=== PATIENT | female | born 1940 | race Caucasian/White ===

== ENCOUNTER 2016-08-05 08:28 | Outpatient (CLI) | payer MEDICARE, OTHER | END 2016-08-05 08:29 | disposition home or self-care (01) | DX: I10 Essential (primary) hypertension (principal); Z79.899 Other long term (current) drug therapy ==

== ENCOUNTER 2016-11-15 09:53 | Outpatient (CLI) | payer MEDICARE, OTHER | END 2016-11-15 09:54 | disposition home or self-care (01) | DX: Z12.31 Encounter for screening mammogram for malignant neoplasm of breast (principal); Z80.3 Family history of malignant neoplasm of breast ==

== ENCOUNTER 2017-03-28 14:30 | Outpatient (CLI) | payer MEDICARE, OTHER | END 2017-03-28 14:31 | disposition home or self-care (01) | LOC: LAB.R 14:30 | PROVIDERS: ATTEND Physician Assistant Medical | DX: N30.00 Acute cystitis without hematuria (principal) | CPT/HCPCS: 87086 ==

== ENCOUNTER 2017-04-19 08:00 | Outpatient (CLI) | payer MEDICARE, OTHER | END 2017-04-19 08:01 | disposition home or self-care (01) | LOC: LAB.R 08:00 | PROVIDERS: ATTEND Nurse Practitioner Primary Care | DX: N30.00 Acute cystitis without hematuria (principal) | CPT/HCPCS: 87086 ==

== ENCOUNTER 2017-08-10 08:00 | Outpatient (CLI) | payer MEDICARE, OTHER ==
[2017-08-10 14:50] LABS: BASOPHILS % (AUTO) 0.6 %; EOSINOPHILS # (AUTO) 0.2 10^3/uL (0.0-0.7); EOSINOPHILS % (AUTO) 3.4 %; HGB - HEMOGLOBIN 12.6 g/dL (12.0-16.0); LYMPHOCYTES # (AUTO) 2.8 10^3/uL (1.5-3.5); LYMPHOCYTES % (AUTO) 45.9 %; MEAN CORPUSCULAR HEMOGLOBIN 29.8 pg (27.0-31.0); MEAN CORPUSCULAR HGB CONC 33.3 g/dL (32.0-36.0); MEAN CORPUSCULAR VOLUME 89.2 fL (81.0-99.0); MEAN PLATELET VOLUME 9.5 fL (7.9-10.8); MONOCYTES # (AUTO) 0.6 10^3/uL (0.0-1.0); MONOCYTES % (AUTO) 9.3 %; NEUTROPHILS # (AUTO) 2.5 10^3/uL (1.5-6.6); NEUTROPHILS % (AUTO) 40.8 %; PLT - PLATELET COUNT 216 10^3/uL (130-450); RED BLOOD COUNT 4.22 10^6/uL (4.20-5.40); RED CELL DISTRIBUTION WIDTH 13.9 % (12.0-15.0); WHITE BLOOD COUNT 6.1 x10^3/uL (4.8-10.8)
[2017-08-10 15:00] LABS: ALBUMIN 4.1 g/dL (3.2-5.5); ALBUMIN/GLOBULIN RATIO 1.3 (1.0-2.2); ALKALINE PHOSPHATASE 73 IU/L (42-121); ALT ALANINE AMINOTRANSFERASE 22 IU/L (10-60); AST ASPARTATE AMINOTRANSFERASE 21 IU/L (10-42); BILIRUBIN,TOTAL 0.9 mg/dL (0.2-1.0); BUN - BLOOD UREA NITROGEN 17 mg/dL (6-20); CARBON DIOXIDE - CO2 25 mmol/L (21-32); CHLORIDE 101 mmol/L (101-111); CHOL/HDL RATIO 3.4 (<4.4); CHOLESTEROL 198 mg/dL; CREATININE 0.7 mg/dL (0.4-1.0); GFR - MDRD 82 (>89); GLUCOSE 82 mg/dL (70-100); HDL CHOLESTEROL 59 mg/dL; LDL CHOLESTEROL,CALCULATED 114 mg/dL; LDL/HDL RATIO 1.9 (<4.4); SODIUM 137 mmol/L (135-145); TOTAL PROTEIN 7.3 g/dL (6.7-8.2); VLDL CHOLESTEROL 25 mg/dL
== END 2017-08-10 08:01 ==
LOC: LAB.R 08:00
PROVIDERS: ATTEND Physician Assistant Medical
DX: Z79.899 Other long term (current) drug therapy (principal); M54.5 Low back pain; I10 Essential (primary) hypertension
CPT/HCPCS: 80053; 80061; 83721; 84443; 85025

== ENCOUNTER 2017-11-21 10:58 | Outpatient (CLI) | payer MEDICARE, OTHER ==
--- NOTE | 2017-11-22 13:39 | Mammography Report ---
DIGITAL SCREENING MAMMOGRAM: 11/21/2017 CLINICAL INDICATION: A 77-year-old with history of benign right biopsy for screening. COMPARISON: 10/2016, 11/2015, 05/2014, 03/2013, 12/2011, 12/2009. TECHNIQUE: Routine CC and MLO projections were obtained of the breasts. FINDINGS: The breasts again demonstrate scattered fibroglandular densities bilaterally. Coarse and punctate, typically benign calcifications are present. No suspicious masses, clustered microcalcifications, or regions of architectural distortion are identified. IMPRESSION: BENIGN FINDINGS. RECOMMENDATION: Routine annual screening unless otherwise clinically indicated. BI-RADS CATEGORY 2 - BENIGN FINDINGS. STANDARD QUALIFYING STATEMENTS: 1. This examination was reviewed with the aid of Computer-Aided Detection (CAD). 2. A negative or benign imaging report should not delay biopsy if clinically suspicious findings are present. Consider surgical consultation if warranted. More than 5% of cancers are not identified by imaging. 3. Dense breasts may obscure an underlying neoplasm. TD: 11/22/2017 13:26
== END 2017-11-21 10:59 | disposition home or self-care (01) ==
LOC: DI 10:58
PROVIDERS: ATTEND Physician Assistant Medical
DX: Z12.31 Encounter for screening mammogram for malignant neoplasm of breast (principal)
CPT/HCPCS: 77067

== ENCOUNTER 2018-08-16 08:00 | Outpatient (CLI) | payer MEDICARE, OTHER ==
[2018-08-16 12:11] LABS: BASOPHILS # (AUTO) 0.1 10^3/uL (0.0-0.1); BASOPHILS % (AUTO) 1.2 %; EOSINOPHILS # (AUTO) 0.2 10^3/uL (0.0-0.7); EOSINOPHILS % (AUTO) 3.2 %; HGB - HEMOGLOBIN 13.2 g/dL (12.0-16.0); LYMPHOCYTES % (AUTO) 46.4 %; MEAN CORPUSCULAR HEMOGLOBIN 30.3 pg (27.0-31.0); MEAN CORPUSCULAR HGB CONC 35.8 g/dL (32.0-36.0); MEAN CORPUSCULAR VOLUME 84.8 fL (81.0-99.0); MEAN PLATELET VOLUME 9.1 fL (7.9-10.8); MONOCYTES # (AUTO) 0.6 10^3/uL (0.0-1.0); MONOCYTES % (AUTO) 9.9 %; NEUTROPHILS # (AUTO) 2.5 10^3/uL (1.5-6.6); NEUTROPHILS % (AUTO) 39.3 %; PLT - PLATELET COUNT 215 10^3/uL (130-450); RED BLOOD COUNT 4.35 10^6/uL (4.20-5.40); RED CELL DISTRIBUTION WIDTH 13.5 % (12.0-15.0); WHITE BLOOD COUNT 6.4 x10^3/uL (4.8-10.8)
[2018-08-16 12:20] LABS: ALBUMIN 4.2 g/dL (3.2-5.5); ALBUMIN/GLOBULIN RATIO 1.2 (1.0-2.2); BILIRUBIN,TOTAL 0.8 mg/dL (0.2-1.0); CREATININE 0.6 mg/dL (0.4-1.0); TOTAL PROTEIN 7.6 g/dL (6.7-8.2)
== END 2018-08-16 23:59 | disposition home or self-care (01) ==
LOC: LAB.R 08:00
PROVIDERS: ATTEND Nurse Practitioner Primary Care
DX: I10 Essential (primary) hypertension (principal); Z79.899 Other long term (current) drug therapy
CPT/HCPCS: 80053; 85025

== ENCOUNTER 2020-05-14 09:53 | Outpatient (CLI) | payer MEDICARE, OTHER ==
[2020-05-14 10:17] LABS: BASOPHILS % (AUTO) 0.4 %; EOSINOPHILS # (AUTO) 0.2 10^3/uL (0.0-0.7); EOSINOPHILS % (AUTO) 3.8 %; LYMPHOCYTES # (AUTO) 2.8 10^3/uL (1.5-3.5); LYMPHOCYTES % (AUTO) 50.8 %; MEAN CORPUSCULAR HEMOGLOBIN 30.4 pg (27.0-31.0); MEAN CORPUSCULAR HGB CONC 33.2 g/dL (32.0-36.0); MEAN CORPUSCULAR VOLUME 91.6 fL (81.0-99.0); MEAN PLATELET VOLUME 9.7 fL (7.9-10.8); MONOCYTES # (AUTO) 0.7 10^3/uL (0.0-1.0); MONOCYTES % (AUTO) 12.7 %; NEUTROPHILS # (AUTO) 1.8 10^3/uL (1.5-6.6); NEUTROPHILS % (AUTO) 32.1 %; PLT - PLATELET COUNT 233 10^3/uL (130-450); RED BLOOD COUNT 4.28 10^6/uL (4.20-5.40); RED CELL DISTRIBUTION WIDTH 13.3 % (12.0-15.0); WHITE BLOOD COUNT 5.6 x10^3/uL (4.8-10.8)
[2020-05-14 10:42] LABS: ALBUMIN 4.1 g/dL (3.2-5.5); ALBUMIN/GLOBULIN RATIO 1.3 (1.0-2.2); ALKALINE PHOSPHATASE 72 IU/L (42-121); ALT ALANINE AMINOTRANSFERASE 34 IU/L (10-60); AST ASPARTATE AMINOTRANSFERASE 27 IU/L (10-42); BILIRUBIN,TOTAL 0.6 mg/dL (0.2-1.0); BUN - BLOOD UREA NITROGEN 13 mg/dL (6-20); CALCIUM 9.1 mg/dL (8.5-10.3); CARBON DIOXIDE - CO2 25 mmol/L (21-32); CHLORIDE 103 mmol/L (101-111); CHOL/HDL RATIO 4.5 (<4.4); CHOLESTEROL 207 mg/dL; CREATININE 0.7 mg/dL (0.4-1.0); GLUCOSE 105 mg/dL (70-100); HDL CHOLESTEROL 46 mg/dL; LDL CHOLESTEROL,CALCULATED 128 mg/dL; LDL/HDL RATIO 2.8 (<4.4); SODIUM 139 mmol/L (135-145); TOTAL PROTEIN 7.3 g/dL (6.7-8.2); VLDL CHOLESTEROL 33 mg/dL
== END 2020-05-14 09:54 | disposition home or self-care (01) ==
LOC: LAB 09:53
PROVIDERS: ATTEND Registered Nurse
DX: I10 Essential (primary) hypertension (principal); Z79.899 Other long term (current) drug therapy
CPT/HCPCS: 36415; 80053; 80061; 83721; 84443; 85025

== ENCOUNTER 2020-06-02 11:53 | Outpatient (CLI) | payer MEDICARE, OTHER ==
--- NOTE | 2020-06-02 15:52 | XRAY Report ---
PROCEDURE: Knee 3 View LT INDICATIONS: DERANGEMENT,INTERNAL,KNEE NOS TECHNIQUE: 3 views of the left knee(s) were acquired. COMPARISON: None. FINDINGS: Bones: No fractures or dislocations. No suspicious bony lesions. Moderate medial, mild to moderate patellofemoral as well as lateral compartment narrowing. Small periarticular osteophytes are present . No erosions. Soft tissues: Moderate to severe joint effusion. No suspicious soft tissue calcifications. IMPRESSION: Prominent tricompartmental degenerative narrowing suggestive osteoarthritis. Reviewed by: Kat Shaikh MD on 06/02/2020 3:51 PM PST Approved by: Kat Shaikh MD on 06/02/2020 3:51 PM PST Station ID: [id number]
== END 2020-06-02 11:54 | disposition home or self-care (01) ==
LOC: DI 11:53
PROVIDERS: ATTEND Family Medicine
DX: M17.12 Unilateral primary osteoarthritis, left knee (principal)

== ENCOUNTER 2020-08-04 13:55 | Outpatient (CLI) | payer MEDICARE, OTHER ==
--- NOTE | 2020-08-05 14:58 | Mammography Report ---
BILATERAL DIGITAL SCREENING MAMMOGRAM 3D/2D: 08/04/2020 CLINICAL: Routine screening. Comparison is made to exams dated: 11/15/2016 mammogram, 11/21/2017 mammogram, 11/24/2015 mammogram, an d 05/30/2014 mammogram - Located within [facility]. There are scattered fibroglandular elements i n both breasts. No significant masses, calcifications, or other findings are seen in either breast. There has been no significant interval change. IMPRESSION: NEGATIVE There is no mammographic evidence of malignancy. A 1 year screening mammogram is recommended. This exam was interpreted at Station ID: [id number]. NOTE: For mammograms, a report in lay terms will be sent to the patient. Approximately 15% of breast malignancies will not be visualized mammographically. In the management of a palpable breast mass, a negative mammogram must not discourage biopsy of a clinically suspicious lesion. Electronically Signed By: Red Crouch M.D. ddp/penrad:08/04/2020 16:50:59 ACR BI-RADS Category 1: Negative 3341F PARENCHYMAL PATTERN: (A) - The breast(s) demonstrate(s) scattered fibroglandular densities. BI-RADS CATEGORY: (1) - 1 RECOMMENDATION: (ANNUAL) - Recommend routine annual screening mammography. [id number] 1 year screening LATERALITY: (B)
== END 2020-08-04 13:56 | disposition home or self-care (01) ==
LOC: DI 13:55
PROVIDERS: ATTEND Obstetrics & Gynecology
DX: Z12.31 Encounter for screening mammogram for malignant neoplasm of breast (principal)

== ENCOUNTER 2020-08-04 13:58 | Outpatient (CLI) | payer MEDICARE, OTHER ==
--- NOTE | 2020-08-04 17:04 | DEXA Report ---
PROCEDURE: Dexa Spine and/or Hip INDICATIONS: MENOPAUSE TECHNIQUE: Dual energy x-ray absorptiometry (DXA) was performed on a [employer] System. Regions measur ed are the AP Spine, femoral neck, and if needed forearm. COMPARISON: None. FINDINGS: Lumbar Spine: Bone Mineral Density 0.891 g/cm/cm,T score -2.4, osteopenia Left Hip: Bone Mineral Density 0.771 g/cm/cm,T score -1.9, osteopenia Left Femoral Neck: Bone Mineral Density 0.702 g/cm/cm, T score -2.4, osteopenia (T score greater or equal to -1.0: NORMAL) (T score from -1.1 to -2.4: OSTEOPENIA) (T score less than or equal to -2.5 to: OSTEOPOROSIS) Impression: Osteopenia. Patients with diagnosis of osteoporosis or osteopenia should have regular bone mineral density assess ment. For those eligible for Medicare, routine testing is allowed once every 2 years. Testing frequ ency can be increased for patients who have rapidly progressing disease or for those who are receivin g medical therapy to restore bone mass. Reviewed by: Ankita Diana MD, PhD on 08/04/2020 5:03 PM PST Approved by: Ankita Diana MD, PhD on 08/04/2020 5:03 PM PST Station ID: [id number]
== END 2020-08-04 13:59 | disposition home or self-care (01) ==
LOC: DI 13:58
PROVIDERS: ATTEND Registered Nurse
DX: M85.89 Other specified disorders of bone density and structure, multiple sites (principal)

== ENCOUNTER 2021-08-20 10:21 | Outpatient (CLI) | payer MEDICARE, OTHER ==
[2021-08-20 12:34] LABS: BASOPHILS % (AUTO) 0.5 %; EOSINOPHILS % (AUTO) 3.9 %; HCT - HEMATOCRIT 41.5 % (37.0-47.0); HGB - HEMOGLOBIN 13.3 g/dL (12.0-16.0); MEAN CORPUSCULAR HEMOGLOBIN 29.2 pg (27.0-31.0); MEAN CORPUSCULAR VOLUME 91.2 fL (81.0-99.0); MONOCYTES % (AUTO) 7.1 %; NEUTROPHILS % (AUTO) 26.3 %; PLT - PLATELET COUNT 268 10^3/uL (130-450); RED BLOOD COUNT 4.55 10^6/uL (4.20-5.40); RED CELL DISTRIBUTION WIDTH 13.2 % (12.0-15.0); WHITE BLOOD COUNT 8.6 x10^3/uL (4.8-10.8)
[2021-08-20 13:04] LABS: ABNORMAL LYMPHS % (MANUAL) 0 %; BAND NEUTROPHILS % (MANUAL) 0 %
[2021-08-20 13:17] LABS: EOSINOPHILS # (MANUAL) 0.2 10^3/uL (0-0.7); LYMPHOCYTES # (MANUAL) 5.7 10^3/uL (1.5-3.5); LYMPHOCYTES % (MANUAL) 59 %; MONOCYTES # (MANUAL) 0.9 10^3/uL (0.0-1.0); NEUTROPHILS # (MANUAL) 1.9 10^3/uL (1.5-6.6); REACTIVE LYMPHS % (MANUAL) 7 %
[2021-08-20 13:18] LABS: DIFFERENTIAL COMMENT MANUAL DIFFERENTIAL; PLATELET ESTIMATE, MANUAL NORMAL (130-450,000) (NORMAL); PLATELET MORPHOLOGY NORMAL APPEARANCE (NORMAL); RBC MORPHOLOGY (MULTIPLE) NORMAL APPEARANCE (NORMAL)
[2021-08-20 13:25] LABS: ALBUMIN 4.4 g/dL (3.2-5.5); ALBUMIN/GLOBULIN RATIO 1.3 (1.0-2.2); ALKALINE PHOSPHATASE 74 IU/L (42-121); ALT ALANINE AMINOTRANSFERASE 26 IU/L (10-60); AST ASPARTATE AMINOTRANSFERASE 22 IU/L (10-42); BILIRUBIN,TOTAL 0.9 mg/dL (0.2-1.0); BUN - BLOOD UREA NITROGEN 17 mg/dL (6-20); CALCIUM 8.9 mg/dL (8.5-10.3); CARBON DIOXIDE - CO2 27 mmol/L (21-32); CHLORIDE 102 mmol/L (101-111); CHOL/HDL RATIO 4.2 (<4.4); CHOLESTEROL 243 mg/dL; CREATININE 0.7 mg/dL (0.4-1.0); GFR - MDRD 81 (>89); GLUCOSE 107 mg/dL (70-100); HDL CHOLESTEROL 58 mg/dL; LDL CHOLESTEROL,CALCULATED 157 mg/dL; LDL/HDL RATIO 2.7 (<4.4); POTASSIUM 3.6 mmol/L (3.5-5.0); SODIUM 135 mmol/L (135-145); TOTAL PROTEIN 7.7 g/dL (6.7-8.2); TRIGLYCERIDES 139 mg/dL; VLDL CHOLESTEROL 28 mg/dL
== END 2021-08-20 10:22 | disposition home or self-care (01) ==
LOC: LAB.N 10:21
PROVIDERS: ATTEND Registered Nurse
DX: I10 Essential (primary) hypertension (principal)
CPT/HCPCS: 36415; 80053; 80061; 83721; 85025

== ENCOUNTER 2021-08-23 08:00 | Outpatient (CLI) | payer MEDICARE, OTHER | END 2021-08-23 23:59 | disposition home or self-care (01) | LOC: LAB.N 08:00 | PROVIDERS: ATTEND Nurse Practitioner | DX: N39.0 Urinary tract infection, site not specified (principal) | CPT/HCPCS: 87077; 87086; 87181 ==

== ENCOUNTER 2021-08-27 13:19 | Outpatient (CLI) | payer MEDICARE, OTHER ==
--- NOTE | 2021-08-27 16:02 | Ultrasound Report ---
PROCEDURE: Head or Neck Soft Tissue INDICATIONS: SWELLING MASS NECK TECHNIQUE: Real-time scanning was performed of the thyroid gland, with image documentation. COMPARISON: None. FINDINGS: Right thyroid measures 5.0 x 1.7 x 1.2 cm. Left ovary measures 4.7 x 1.0 x 1.0 cm. The isthmus is 0.3 cm in thickness. A right inferior thyroid nodule measures 1.8 x 1.6 x 1.4 cm. The nodule is solid, hypoechoic, and wid er than tall with smooth margins and macroscopic calcification. (TR4 Moderately Suspicious) The palpable abnormality corresponds to the left submandibular gland, which contains a heterogeneousl y hypoechoic solid nodule measuring 2.3 x 1.3 x 1.9 cm with vascularity present. IMPRESSION: 1.Palpable abnormality corresponds to a circumscribed heterogeneous hypoechoic mass in the left subma ndibular gland. Differential considerations include benign and malignant masses. Recommend further ch aracterization with contrast-enhanced MRI or CT of the neck. 2.Moderately suspicious right inferior thyroid nodule measuring 1.8 cm. Recommend fine needle aspirat ion for further evaluation. Reviewed by: Honorio Lomeli MD on 08/27/2021 4:01 PM PST Approved by: Honorio Lomeli MD on 08/27/2021 4:01 PM PST Station ID: [id number]
== END 2021-08-27 13:20 | disposition home or self-care (01) ==
LOC: DI 13:19
PROVIDERS: ATTEND Family Medicine
DX: R22.1 Localized swelling, mass and lump, neck (principal); E04.1 Nontoxic single thyroid nodule

== ENCOUNTER 2021-09-21 12:03 | Outpatient (CLI) | payer MEDICARE, OTHER ==
[2021-09-21 12:37] LABS: CREATININE 0.7 mg/dL (0.4-1.0)
[2021-09-21] MEDS ORDERED: GADOBUTROL 7.5 MMOL/7.5 ML VIAL ONE (13:06)
--- NOTE | 2021-09-21 15:42 | MRI Report ---
PROCEDURE: Neck Soft Tissue W/WO INDICATIONS: HYPOECHOIC MASS LEFT NECK CONTRAST: IV CONTRAST: Gadavist ml: 7 TECHNIQUE: Sagittal/axial/coronal T1 spin echo and STIR. After the administration of contrast, axial/coronal/sa gittal T1 fast spin echo with fat saturation through the neck. COMPARISON: None. FINDINGS: Image quality: Degraded by motion artifact. Lymph nodes: No enlarged nodes are seen throughout the neck. Vessels: Visualized vasculature appears normal, with tanvir flow voids and enhancement. Neck spaces: The oropharynx, nasopharynx and pharynx are unremarkable, without mucosal lesions seen. Vocal cords, false vocal cords, pyriform sinuses, epiglottis, vallecula, and tongue base all appear normal. Extramucosal spaces of the neck also appear unremarkable. Glands: There is a 2.0 x 1.5 x 1.6 cm well-circumscribed lesion in the inferior margin of the left s ubmandibular gland. Lesion has slightly increased T2 signal and slightly hypointense T1 signal relati ve to normal submandibular tissue. Subtle postcontrast enhancement associated with lesion. The paroti d and right submandibular glands appear normal. 1.6 cm in maximum diameter nodule in the right lobe of the thyroid gland which demonstrates postcontrast enhancement. Miscellaneous: Visualized brain and orbits appear normal. Lung apices appear clear. Superficial so ft tissues appear normal. Small mucous retention cyst noted in the left maxillary sinus. Mastoids bertha ear clear. Bones: Marrow has normal overall signal. IMPRESSION: 1. 2.0 x 1.5 x 1.6 cm well-circumscribed lesion in the inferior margin left submandibular gland. Diff erential diagnosis includes benign etiologies such as pleomorphic adenoma or Marguerite's tumor and wendy gnancies including mucoepidermoid carcinoma and adenoid cystic carcinoma. Recommend ENT consultation. 2. 1.6 cm enhancing nodule in the right lobe of thyroid gland. Recommend thyroid ultrasound for defin itive characterization. Reviewed by: Ankita Diana MD, PhD on 09/21/2021 3:41 PM PDT Approved by: Ankita Diana MD, PhD on 09/21/2021 3:41 PM PDT Station ID: [id number]
[2021-09-21] MEDS ORDERED: GADOBUTROL 7.5 MMOL/7.5 ML VIAL IVP ONE (16:44)
== END 2021-09-21 12:04 | disposition home or self-care (01) ==
LOC: DI 12:03
PROVIDERS: ATTEND Registered Nurse
DX: R22.1 Localized swelling, mass and lump, neck (principal); E04.1 Nontoxic single thyroid nodule; Z01.818 Encounter for other preprocedural examination
CPT/HCPCS: 36415; 70543; 82565; A9585

== ENCOUNTER 2021-10-25 08:00 | Outpatient (CLI) | payer MEDICARE, OTHER | END 2021-10-25 08:01 | disposition home or self-care (01) | LOC: LAB.N 08:00 | PROVIDERS: ATTEND Family Medicine | DX: N39.0 Urinary tract infection, site not specified (principal) | CPT/HCPCS: 87077; 87086; 87181 ==

== ENCOUNTER 2022-04-13 08:00 | Outpatient (CLI) | payer MEDICARE, OTHER | END 2022-04-13 23:59 | disposition home or self-care (01) | LOC: LAB.N 08:00 | PROVIDERS: ATTEND Family Medicine | DX: R30.0 Dysuria (principal) | CPT/HCPCS: 87077; 87086; 87181 ==

== ENCOUNTER 2022-07-26 15:27 | Outpatient (CLI) | payer MEDICARE, OTHER ==
--- NOTE | 2022-07-26 17:06 | XRAY Report ---
PROCEDURE: Lumbar Spine Complete INDICATIONS: LOW BACK PAIN UNSPECIFIED TECHNIQUE: 5 views of the lumbar spine were acquired. COMPARISON: None. FINDINGS: Bones: 4 [id number] vertebrae are present with partial sacralization of L5, with a rudimentary L5-S1 disc. There is normal bony alignment. Lower lumbar facet arthropathy. Oblique images demonstra te no evidence of pars defects. No vertebral body compression fractures. No suspicious bony lesions. Soft tissues: Overlying bowel gas pattern is normal. No suspicious soft tissue calcifications. IMPRESSION: 1. Please note there are 4 nonrib-bearing lumbar vertebral bodies and partial sacralization of L5. 2. Lower lumbar facet arthropathy. Reviewed by: Trace Morales MD on 07/26/2022 5:04 PM PST Approved by: Trace Morales MD on 07/26/2022 5:04 PM PST Station ID: [id number]
== END 2022-07-26 15:28 | disposition home or self-care (01) ==
LOC: DI 15:27
PROVIDERS: ATTEND Nurse Practitioner
DX: M47.816 Spondylosis without myelopathy or radiculopathy, lumbar region (principal)

== ENCOUNTER 2022-08-24 10:36 | Outpatient (CLI) | payer MEDICARE, OTHER ==
--- NOTE | 2022-08-24 15:03 | DEXA Report ---
PROCEDURE: Dexa Spine and/or Hip INDICATIONS: POST MENOPAUSAL TECHNIQUE: Dual energy x-ray absorptiometry (DXA) was performed on a [employer] System. Regions measur ed are the AP Spine, femoral neck, and if needed forearm. COMPARISON: None. FINDINGS: Lumbar Spine: Bone Mineral Density 0.936 g/cm/cm,T score -2.0, previously -2.4 Left Femoral Neck: Bone Mineral Density 0.685 g/cm/cm, T score -2.5, previously -2.4 Left Hip: Bone Mineral Density 0.772 g/cm/cm,T score -1.9, previously -1.9 (T score greater or equal to -1.0: NORMAL) (T score from -1.1 to -2.4: OSTEOPENIA) (T score less than or equal to -2.5 to: OSTEOPOROSIS) Impression: Osteoporosis. There has been improvement of the lumbar spine but worsening of the left femoral neck b one mineral density Patients with diagnosis of osteoporosis or osteopenia should have regular bone mineral density assess ment. For those eligible for Medicare, routine testing is allowed once every 2 years. Testing frequ ency can be increased for patients who have rapidly progressing disease or for those who are receivin g medical therapy to restore bone mass. Reviewed by: Joselito Reeder MD on 08/24/2022 2:02 PM RUST Approved by: Joselito Reeder MD on 08/24/2022 2:02 PM [place] Station ID: [id number]
== END 2022-08-24 10:37 | disposition home or self-care (01) ==
LOC: DI 10:36
PROVIDERS: ATTEND Nurse Practitioner
DX: M85.89 Other specified disorders of bone density and structure, multiple sites (principal); Z78.0 Asymptomatic menopausal state

== ENCOUNTER 2022-12-07 14:49 | Outpatient (CLI) | payer MEDICARE, OTHER ==
[2022-12-07 15:03] LABS: BASOPHILS % (AUTO) 0.3 %; EOSINOPHILS % (AUTO) 1.3 %; HCT - HEMATOCRIT 39.6 % (37.0-47.0); HGB - HEMOGLOBIN 13.1 g/dL (12.0-16.0); MEAN CORPUSCULAR HEMOGLOBIN 29.9 pg (27.0-31.0); MEAN CORPUSCULAR HGB CONC 33.1 g/dL (32.0-36.0); MEAN CORPUSCULAR VOLUME 90.4 fL (81.0-99.0); MEAN PLATELET VOLUME 10.3 fL (7.9-10.8); MONOCYTES % (AUTO) 4.5 %; NEUTROPHILS % (AUTO) 14.7 %; PLT - PLATELET COUNT 235 10^3/uL (130-450); RED BLOOD COUNT 4.38 10^6/uL (4.20-5.40); WHITE BLOOD COUNT 18.1 x10^3/uL (4.8-10.8)
[2022-12-07 15:08] LABS: ABNORMAL LYMPHS % (MANUAL) 0 %; BAND NEUTROPHILS % (MANUAL) 0 %
[2022-12-07 15:14] LABS: ALBUMIN 4.3 g/dL (3.2-5.5); ALBUMIN/GLOBULIN RATIO 1.3 (1.0-2.2); BILIRUBIN,TOTAL 0.5 mg/dL (0.2-1.0); CALCIUM 9.1 mg/dL (8.5-10.3); CREATININE 0.6 mg/dL (0.4-1.0); POTASSIUM 3.6 mmol/L (3.5-5.0); TOTAL PROTEIN 7.6 g/dL (6.7-8.2)
[2022-12-07 15:31] LABS: THYROID STIMULATING HORMONE 1.77 uIU/mL (0.34-5.60)
[2022-12-07 16:03] LABS: DIFFERENTIAL COMMENT MANUAL DIFFERENTIAL; EOSINOPHILS # (MANUAL) 0.5 10^3/uL (0-0.7); LYMPHOCYTES % (MANUAL) 83 %; MONOCYTES # (MANUAL) 0.4 10^3/uL (0.0-1.0); NEUTROPHILS # (MANUAL) 2.2 10^3/uL (1.5-6.6); PLATELET ESTIMATE, MANUAL NORMAL (130-450,000) (NORMAL); PLATELET MORPHOLOGY NORMAL APPEARANCE (NORMAL); RBC MORPHOLOGY (MULTIPLE) NORMAL APPEARANCE (NORMAL)
== END 2022-12-07 14:50 | disposition home or self-care (01) ==
LOC: LAB 14:49
PROVIDERS: ATTEND Nurse Practitioner
DX: I10 Essential (primary) hypertension (principal); E04.1 Nontoxic single thyroid nodule
CPT/HCPCS: 36415; 80053; 84443; 85025

== ENCOUNTER 2022-12-09 09:02 | Outpatient (CLI) | payer MEDICARE, OTHER | END 2022-12-09 09:03 | disposition home or self-care (01) | LOC: LAB 09:02 | PROVIDERS: ATTEND Nurse Practitioner | DX: D72.829 Elevated white blood cell count, unspecified (principal) | CPT/HCPCS: 88184; 88185; 88189 ==

== ENCOUNTER 2023-01-16 09:23 | Outpatient (CLI) | payer MEDICARE, OTHER ==
[2023-01-16 09:44] LABS: BASOPHILS % (AUTO) 0.4 %; EOSINOPHILS % (AUTO) 1.3 %; HCT - HEMATOCRIT 40.6 % (37.0-47.0); LYMPHOCYTES % (AUTO) 77.6 %; MEAN CORPUSCULAR HEMOGLOBIN 29.8 pg (27.0-31.0); MEAN CORPUSCULAR VOLUME 93.1 fL (81.0-99.0); MEAN PLATELET VOLUME 10.4 fL (7.9-10.8); MONOCYTES % (AUTO) 5.6 %; NEUTROPHILS % (AUTO) 14.9 %; PLT - PLATELET COUNT 213 10^3/uL (130-450); RED BLOOD COUNT 4.36 10^6/uL (4.20-5.40); RED CELL DISTRIBUTION WIDTH 13.2 % (12.0-15.0); WHITE BLOOD COUNT 16.5 x10^3/uL (4.8-10.8)
[2023-01-16 09:50] LABS: ABNORMAL LYMPHS % (MANUAL) 0 %; BAND NEUTROPHILS % (MANUAL) 0 %
[2023-01-16 10:06] LABS: DIFFERENTIAL COMMENT MANUAL DIFFERENTIAL; EOSINOPHILS # (MANUAL) 0.3 10^3/uL (0-0.7); LYMPHOCYTES # (MANUAL) 12.4 10^3/uL (1.5-3.5); LYMPHOCYTES % (MANUAL) 29 %; MONOCYTES # (MANUAL) 1.2 10^3/uL (0.0-1.0); NEUTROPHILS # (MANUAL) 2.6 10^3/uL (1.5-6.6); RBC MORPHOLOGY (MULTIPLE) 1+ ANISOCYTOSIS (NORMAL); REACTIVE LYMPHS % (MANUAL) 46 %
== END 2023-01-16 09:24 | disposition home or self-care (01) ==
LOC: LAB 09:23
PROVIDERS: ATTEND Nurse Practitioner
DX: D72.829 Elevated white blood cell count, unspecified (principal)
CPT/HCPCS: 36415; 85025; 88184; 88185; 88189

== ENCOUNTER 2023-04-21 08:00 | Outpatient (CLI) | payer MEDICARE, OTHER | END 2023-04-21 23:59 | disposition home or self-care (01) | LOC: LAB 08:00 | PROVIDERS: ATTEND Physician Assistant Medical | DX: N30.00 Acute cystitis without hematuria (principal) | CPT/HCPCS: 87086; 87181 ==

== ENCOUNTER 2023-07-06 10:45 | Outpatient (CLI) | payer MEDICARE, OTHER | END 2023-07-06 11:00 | disposition home or self-care (01) | LOC: LAB.N 10:45 | PROVIDERS: ATTEND Physician Assistant Medical | DX: N30.01 Acute cystitis with hematuria (principal) | CPT/HCPCS: 87086; 87181 ==

== ENCOUNTER 2023-07-17 12:00 | Outpatient (CLI) | payer MEDICARE, OTHER ==
[2023-07-17 17:44] LABS: BILIRUBIN,URINE NEGATIVE (NEGATIVE); GLUCOSE, URINE (UA) NEGATIVE (NEGATIVE); KETONES,URINE (UA) NEGATIVE (NEGATIVE); LEUKOCYTE ESTERASE, URINE MODERATE (NEGATIVE); NITRITE,URINE POSITIVE (NEGATIVE); OCCULT BLOOD,URINE SMALL (NEGATIVE); PH,URINE 5.5 PH (5.0-7.5); PROTEIN,URINE TRACE mg/dL (NEGATIVE); UROBILINOGEN,URINE 0.2 (NORMAL) E.U./dL (NORMAL)
[2023-07-17 17:46] LABS: CLARITY,URINE CLOUDY (CLEAR)
[2023-07-17 17:56] LABS: BACTERIA,URINE Many /HPF (None Seen); SQUAMOUS EPITHELIAL CELL,UR NONE SEEN (<= Few); WBC,URINE >25 /HPF (0-5)
== END 2023-07-17 12:15 | disposition home or self-care (01) ==
LOC: LAB.N 12:00
PROVIDERS: ATTEND Family Medicine
DX: N39.0 Urinary tract infection, site not specified (principal)
CPT/HCPCS: 81001; 87086; 87181

== ENCOUNTER 2023-08-01 10:30 | Outpatient (CLI) | payer MEDICARE, OTHER ==
[2023-08-01 10:43] LABS: BILIRUBIN,URINE NEGATIVE (NEGATIVE); GLUCOSE, URINE (UA) NEGATIVE (NEGATIVE); KETONES,URINE (UA) NEGATIVE (NEGATIVE); LEUKOCYTE ESTERASE, URINE NEGATIVE (NEGATIVE); NITRITE,URINE NEGATIVE (NEGATIVE); OCCULT BLOOD,URINE TRACE-INTA (NEGATIVE); PROTEIN,URINE NEGATIVE (NEGATIVE); UROBILINOGEN,URINE 0.2 (NORMAL) E.U./dL (NORMAL)
[2023-08-01 10:54] LABS: BACTERIA,URINE Rare /HPF (None Seen); CLARITY,URINE CLEAR (CLEAR); RBC,URINE None Seen /HPF (0-5); SQUAMOUS EPITHELIAL CELL,UR MOD Squamous (<= Few); WBC,URINE 0-3 /HPF (0-5)
== END 2023-08-01 10:31 | disposition home or self-care (01) ==
LOC: LAB 10:30
PROVIDERS: ATTEND Nurse Practitioner
DX: N39.0 Urinary tract infection, site not specified (principal)
CPT/HCPCS: 81001; 87086; 87181

== ENCOUNTER 2023-09-22 13:24 | Outpatient (CLI) | payer MEDICARE, OTHER ==
--- NOTE | 2023-09-22 22:39 | Ultrasound Report ---
PROCEDURE: Renal (Retroperitoneal) INDICATIONS: RECURRENT UTI'S TECHNIQUE: Real-time scanning was performed of the retroperitoneal organs, with image documentation. COMPARISON: Outside CT abdomen and pelvis without contrast dated 11/03/2010 with report available, no images available for review at time of dictation. FINDINGS: Kidneys: Kidneys are normal in size. Right kidney measures 9.8 cm long; left kidney measures 10.7 c m long. Right renal cortical thickness is 0.7 cm; left renal cortical thickness is 0.7 cm. No solid masses, hydronephrosis, or nephrolithiasis. Prominent right renal pelvis, unchanged between pre and post void states, probable extrarenal pelvis. Bladder: Pre-void bladder volume is 82.5 mL. Post-void residual is 1.9 mL. Pre-void images demonst rate no intraluminal masses or stones. On pre-void images, bilateral ureteral jets are noted with co rosetta Doppler interrogation. (Of note, ureteral jets may not be detectable in up to 25% of cases due t o insufficient differences in specific gravity between ureteral and bladder urine). Miscellaneous: No free abdominal fluid. IMPRESSION: No nephrolithiasis or hydronephrosis. Probable right extrarenal pelvis. Prevoid bladder volume of 82.5 cc with postvoid residual volume of 1.9 cc. Bilateral ureteral jets vi sualized. Reviewed by: Pamela Rodriguez MD, PhD on 09/22/2023 9:38 PM STEVEN Approved by: Pamela Rodriguez MD, PhD on 09/22/2023 9:38 PM STEVEN Station ID: [id number]
== END 2023-09-22 13:25 | disposition home or self-care (01) ==
LOC: DI 13:24
PROVIDERS: ATTEND Urology
DX: N39.0 Urinary tract infection, site not specified (principal)

== ENCOUNTER 2023-10-03 12:57 | Outpatient (CLI) | payer MEDICARE, OTHER ==
--- NOTE | 2023-10-03 16:16 | CT Report ---
PROCEDURE: Sinus INDICATIONS: CHRONIC PANSINUSITIS TECHNIQUE: Noncontrast 3.0 mm axial images acquired from the frontal sinuses to the mid-sella, with coronal and sagittal reformats. For radiation dose reduction, the following was used: automated exposure control , adjustment of mA and/or kV according to patient size. COMPARISON: None. FINDINGS: Image quality: Excellent. Maxillary Sinuses: No bony remodeling or destruction. Mild mucosal thickening of the inferior maxill fred sinuses. Ethmoid Air Cells: No bony remodeling or destruction. Sinuses are clear. Sphenoid Sinuses: No bony remodeling or destruction. Small dependent air-fluid level within the righ t sphenoid sinus with frothy secretions.. Frontal Sinuses: No bony remodeling or destruction. Sinuses are clear. Ostiomeatal Complexes: Ostiomeatal complexes are patent. No Saúl cells. Miscellaneous: Visualized intra-orbital contents are normal. Lungs replacements No jagdeep bullosa. Mild rightward nasal septal deviation. Moderate temporal mandibular joint degeneration bilateral ly IMPRESSION: Mild paranasal sinus disease as described above. Air-fluid level within the right sphenoid sinus, sug gestive of acute sinusitis. Reviewed by: Kiran Lebron MD on 10/03/2023 4:14 PM PDT Approved by: Kiran Lebron MD on 10/03/2023 4:14 PM PDT Station ID: [id number]
== END 2023-10-03 12:58 | disposition home or self-care (01) ==
LOC: DI 12:57
PROVIDERS: ATTEND Otolaryngology
DX: J32.4 Chronic pansinusitis (principal); R43.0 Anosmia; J01.41 Acute recurrent pansinusitis; R09.82 Postnasal drip

== ENCOUNTER 2023-12-08 08:00 | Outpatient (CLI) | payer MEDICARE, OTHER | END 2023-12-08 23:59 | disposition home or self-care (01) | LOC: LAB.WCP 08:00 | PROVIDERS: ATTEND Urology | DX: N39.0 Urinary tract infection, site not specified (principal) | CPT/HCPCS: 87086; 87181 ==

== ENCOUNTER 2024-02-13 08:00 | Outpatient (CLI) | payer MEDICARE, OTHER | END 2024-02-13 23:59 | disposition home or self-care (01) | LOC: LAB.WCP 08:00 | PROVIDERS: ATTEND Nurse Practitioner | DX: N39.0 Urinary tract infection, site not specified (principal) | CPT/HCPCS: 87086 ==

== ENCOUNTER 2024-03-22 08:00 | Outpatient (CLI) | payer MEDICARE, OTHER | END 2024-03-22 23:58 | disposition home or self-care (01) | LOC: LAB.N 08:00 | PROVIDERS: ATTEND Urology | DX: D72.829 Elevated white blood cell count, unspecified (principal); N39.0 Urinary tract infection, site not specified | CPT/HCPCS: 87077; 87086; 87181 ==

== ENCOUNTER 2024-03-24 10:12 | Emergency (ER) | payer MEDICARE, OTHER ==
--- NOTE | 2024-03-24 11:13 | ED Physician Documentation ---
History of Present Illness - Stated complaint Stated Complaint: LT LEG/FT SWOLLEN,LT ARMPT PX,PX ALL DOWN LEG - Chief complaint Chief Complaint: Ext Problem - Additonal information Additional information: 83-year-old female with history of hypertension, arrhythmias, chronic bladder infections, osteoarthritis, lymphomaUpon chart review patient has monoclonal B- cell consistent with CLL last appointment was 01/18/2023 and she was found to be stable has not received any treatment for CLL. Patient reports over the last couple days she has been having increased left lower extremity swelling and pain that starts in her groin region and radiates down her internal leg she says that there is a very clear pattern to where the pain is. There is obvious swelling to the entire left lower extremity and she says today that she is now starting to experience pain in her armpit with swelling and increased abdominal pain with a bulge in her abdomen.No recent medication changes no nausea or vomiting but she does report that she has not taken her meds today because she just wanted to get a evaluation without anything on board. She also feels like she is struggling with a recurrent urinary tract infection that she is not currently on antibiotics for which does report that she has a lot of antibiotic resistance PD PAST MEDICAL HISTORY - Past Medical History Past Medical History: No Cardiovascular: Hypertension, Arrhythmia Respiratory: None Endocrine/Autoimmune: None GI: None : Incontinence, Chronic bladder infection, Frequency HEENT: Chronic vision loss Psych: None, Claustrophobia Musculoskeletal: Osteoarthritis, Chronic back pain Derm: None Other Past Medical History: Luekemia - Past Surgical History Past Surgical History: No 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, Other HEENT: Tonsil/Adenoidectomy Derm: Skin cancer surgery - Present Medications Home Medications: Ambulatory Orders Medication Instructions Recorded Confirmed Cholecalciferol (Vitamin D3) 1,000 unit ORAL DAILY 11/09/15 03/24/24 [Vitamin D] hydroCHLOROthiazide 12.5 mg ORAL DAILY 11/09/15 03/24/24 [Hydrochlorothiazide] Alendronate Sodium 70 mg PO UD 01/18/23 03/24/24 Calcium Carbonate [Calcium] 600 mg PO DAILY 01/18/23 03/24/24 Cyanocobalamin (Vitamin B-12) 2,500 mcg PO DAILY 01/18/23 03/24/24 [Vitamin B-12] Estrogens, Conjugated Cream 1 applic TOP PRN PRN 01/18/23 03/24/24 [Premarin Cream] D-Mannose [Azo D-Mannose] 500 mg PO BID 03/24/24 03/24/24 - Allergies Allergies/Adverse Reactions: Allergies Allergy/AdvReac Type Severity Reaction Status Date / Time eucalyptus Allergy Respiratory Verified 03/24/24 10:28 [From Vicks Vaporub] eucalyptus oil * Allergy Respiratory Verified 03/24/24 10:28 [From Vicks Vaporub] Influenza Virus Vaccines Allergy Unknown Verified 03/24/24 10:28 meperidine HCl * Allergy Hives Verified 03/24/24 10:28 [From Demerol] petrolatum,white Allergy Respiratory Verified 03/24/24 10:28 [From Vicks Vaporub] turpentine oil Allergy Respiratory Verified 03/24/24 10:28 [From Vicks Vaporub] ciprofloxacin [From Cipro] AdvReac Nausea Verified 03/24/24 10:28 ciprofloxacin HCl * AdvReac Nausea Verified 03/24/24 10:28 [From Cipro] Sulfa (Sulfonamide AdvReac Nausea Verified 03/24/24 10:28 Antibiotics) shrimp Allergy Hives Uncoded 03/24/24 10:28 - Social History Does the pt smoke?: No Smoking Status: Former smoker Does the pt drink ETOH?: Yes ETOH Use: Liquor Does the pt have substance abuse?: No - Immunizations Immunizations are current?: No - POLST Patient has POLST: Yes Results - Vitals Vitals: Vital Signs - 24 hr 03/24/24 03/24/24 03/24/24 10:28 11:04 11:30 Temperature 36.6 C Heart Rate 105 H 97 93 Respiratory 15 18 20 Rate Blood Pressure 148/96 H 127/93 H O2 Saturation 98 98 95 03/24/24 03/24/24 12:00 13:40 Temperature 36.7 C Heart Rate 93 98 Respiratory 22 18 Rate Blood Pressure 141/93 H O2 Saturation 92 96 Oxygen O2 Source Room air - EKG (time done) 1037 EKG releavant findings:: EKG personally interpreted by author of this note. Relevant findings are: Rate: Rate (enter#) (103) Rhythm: Sinus tachycardia [place]: Normal Intervals: Normal MO QRS: Normal Ischemia: Other (probable left atrial enlargement) Computer interpretation: Agree with computer - Labs Labs: Laboratory Tests 03/24/24 03/24/24 03/24/24 11:21 11:21 13:50 WBC 31.0 H RBC 4.24 Hgb 12.4 Hct 39.2 MCV 92.5 MCH 29.2 MCHC 31.6 L RDW 14.5 Plt Count 240 MPV 9.8 Neut # (Auto) Not Reportable Lymph # (Auto) Not Reportable [place] # (Auto) Not Reportable Eos # (Auto) Not Reportable Baso # (Auto) Not Reportable Absolute Nucleated RBC Not Reportable Total Counted 100 Band Neuts % (Manual) 0 Abnorm Lymph % (Manual) 17 Nucleated RBC % Not Reportable Neutrophils # (Manual) 1.9 Lymphocytes # (Manual) 28.2 H Monocytes # (Manual) 0.9 Eosinophils # (Manual) 0.0 Basophils # (Manual) 0.0 Differential Comment MANUAL DIFFERENTIAL Manual Slide Review Indicated WBC Morphology 2+ SMUDGE Platelet Estimate NORMAL (130-450,000) Platelet Morphology NORMAL UZIEL RBC Morph Micro Appear 2+ ANISOCYTOSIS Sodium 135 Potassium 3.9 Chloride 101 Carbon Dioxide 28 Anion Gap 6.0 BUN 10 Creatinine 0.7 Estimated GFR (MDRD) 80 L Glucose 108 H Calcium 9.4 Magnesium 1.8 Total Bilirubin 0.5 AST 20 ALT 13 Alkaline Phosphatase 63 Total Protein 6.4 Albumin 4.1 Globulin 2.3 Albumin/Globulin Ratio 1.8 Lipase 27 Urine Color YELLOW Urine Clarity CLOUDY Urine pH 7.0 Ur Specific Wilson 1.010 Urine Protein NEGATIVE Urine Glucose (UA) NEGATIVE Urine Ketones NEGATIVE Urine Occult Blood SMALL H Urine Nitrite POSITIVE H Urine Bilirubin NEGATIVE Urine Urobilinogen 0.2 (NORMAL) Ur Leukocyte Esterase MODERATE H Urine RBC 6-10 H Urine WBC >25 H Ur Squamous Epith Cells NONE SEEN Urine Bacteria Rare Ur Microscopic Review INDICATED Urine Culture Comments INDICATED - Rads (name of study) LLE venous duplex Relevant Findings:: Final report received, EMP independent interpretation of test, Other (Nonocclusive thrombus within the greater saphenous vein) Angio chest with and without Relevant Findings:: Final report received, EMP independent interpretation of test, Other (No pulmonary emboli, multiple large axillary and supraclavicular and cervical lymph nodes. Left lower lobe 7 mm pulmonary nodule) abd/pelvis CT Relevant Findings:: Final report received, EMP independent interpretation of test, Other (Extensive very large lymphadenopathy, ill-defined hypodensity within the liver may be related to abdominal lymphadenopathy versus primary hepatic lesion, thickening of bladder wall) PD Medical Decision Making - ED course ED course: 83 yo female here for left leg, left armpit swelling and abdoinal tenderness and fullness. Labs were complete for further evaluation she does have significant leukocytosis 31.0 last lab draw was in November 2023 and it was found to be 32.4 it does appear that over the last year it has been trending up in December 2022 is the first time it was noted to be elevated at 18.1 and has been gradually increasing to 30 I do want leg and arm Departure - Departure Forms: PCP List
[2024-03-24 11:35] LABS: BASOPHILS % (AUTO) 0.4 %; EOSINOPHILS % (AUTO) 1.1 %; HCT - HEMATOCRIT 39.2 % (37.0-47.0); HGB - HEMOGLOBIN 12.4 g/dL (12.0-16.0); LYMPHOCYTES % (AUTO) 79.3 %; MEAN CORPUSCULAR HEMOGLOBIN 29.2 pg (27.0-31.0); MEAN CORPUSCULAR HGB CONC 31.6 g/dL (32.0-36.0); MEAN CORPUSCULAR VOLUME 92.5 fL (81.0-99.0); MEAN PLATELET VOLUME 9.8 fL (7.9-10.8); PLT - PLATELET COUNT 240 10^3/uL (130-450); RED BLOOD COUNT 4.24 10^6/uL (4.20-5.40); RED CELL DISTRIBUTION WIDTH 14.5 % (12.0-15.0)
[2024-03-24 11:39] LABS: SLIDE REVIEW? Indicated
[2024-03-24 11:40] LABS: BAND NEUTROPHILS % (MANUAL) 0 %
[2024-03-24 11:55] LABS: ALBUMIN 4.1 g/dL (3.2-5.5); ALBUMIN/GLOBULIN RATIO 1.8 (1.0-2.2); BILIRUBIN,TOTAL 0.5 mg/dL (0.2-1.0); CALCIUM 9.4 mg/dL (8.5-10.3); CREATININE 0.7 mg/dL (0.6-1.3); MAGNESIUM 1.8 mg/dL (1.7-2.3); POTASSIUM 3.9 mmol/L (3.5-4.5); TOTAL PROTEIN 6.4 g/dL (6.4-8.9)
[2024-03-24] MEDS ORDERED: iohexoL-300 100 ML VIAL ONE (11:58)
[2024-03-24 12:00] LABS: ABNORMAL LYMPHS % (MANUAL) 17 %; LYMPHOCYTES # (MANUAL) 28.2 10^3/uL (1.5-3.5); LYMPHOCYTES % (MANUAL) 74 %; MONOCYTES # (MANUAL) 0.9 10^3/uL (0.0-1.0); NEUTROPHILS # (MANUAL) 1.9 10^3/uL (1.5-6.6)
[2024-03-24 12:03] LABS: PLATELET MORPHOLOGY NORMAL APP (NORMAL); RBC MORPHOLOGY (MULTIPLE) 2+ ANISOCYTOSIS (NORMAL)
[2024-03-24 12:04] LABS: PLATELET ESTIMATE, MANUAL NORMAL (130-450,000) (NORMAL)
[2024-03-24 12:05] LABS: WBC MORPHOLOGY (MULTIPLE) 2+ SMUDGE (NORMAL)
[2024-03-24 12:06] LABS: DIFFERENTIAL COMMENT MANUAL DIFFERENTIAL
--- NOTE | 2024-03-24 13:12 | Ultrasound Report ---
PROCEDURE: Duplex Ext Veins Left INDICATIONS: LLE swelling and pain, LUE armpit pain and swellin TECHNIQUE: Real-time imaging, as well as color and pulse Doppler interrogation, were performed of the lower extr emity deep veins from the inguinal ligament to the popliteal fossa. Attempted visualization of the ca lf veins was performed. COMPARISON: None. FINDINGS: Nonocclusive thrombus throughout the greater sciatic vein with partial compression. There i s reduced flow throughout the femoral and popliteal veins. Augmentation was not performed. IMPRESSION: Nonocclusive thrombus within the greater saphenous vein. Reviewed by: Bharat Chavez MD on 03/24/2024 12:10 PM STEVEN Approved by: Bharat Chavez MD on 03/24/2024 12:10 PM STEVEN Station ID: [id number]
--- NOTE | 2024-03-24 13:18 | CT Report ---
PROCEDURE: Angio Chest INDICATIONS: r/o PE, tachy, abd pain, mid epigastric pain CONTRAST: omni, 100 TECHNIQUE: After the administration of intravenous contrast, 2 mm axial images were acquired from the pulmonary apices to the posterior costophrenic angles during the arterial phase. In addition, 1 mm lung kernel and 5 mm soft tissue kernel reconstructions were performed. 3-dimensional coronal oblique maximum int ensity projection (MIP) reformats, 8 mm axial MIP, and 5 mm coronal and sagittal MPR reformats were t hen performed through the thorax. For radiation dose reduction, the following was used: automated exp osure control, adjustment of mA and/or kV according to patient size. COMPARISON: None. FINDINGS: Image quality: Excellent. Large vessels: No filling defects within the opacified pulmonary arteries, accounting for motion and contrast timing. No evidence of acute aortic syndrome or aortic aneurysm. Lungs and pleura: Slight gravity dependent atelectasis within the bilateral lungs. Left lower lobe 8 x 6 mm pulmonary nodule seen on axial image 53. Right upper lobe calcified granuloma. No pleural effu sions. No pneumothorax. Mediastinum: Heart size is normal. No pericardial effusion. No large vessel abnormality. Calcified me diastinal lymph nodes. Mild coronary artery disease. Chest wall and lower neck: Thyroid is unremarkable. Numerous bilateral axillary, supraclavicular, and cervical lymph nodes. Bones: No aggressive osseous abnormality. Upper Abdomen: Unremarkable. IMPRESSION: 1.No pulmonary embolus. 2.Multiple large axillary, supraclavicular, and cervical lymph nodes. Recommend clinical correlation with laboratory values for systemic etiologies. 3.Left lower lobe 7 mm pulmonary nodule. Consider short-term follow-up in 6 months. Reviewed by: Bharat Cahvez MD on 03/24/2024 12:16 PM STEVEN Approved by: Bharat Chavez MD on 03/24/2024 12:16 PM STEVEN Station ID: [id number]
[2024-03-24 13:56] LABS: BILIRUBIN,URINE NEGATIVE (NEGATIVE); GLUCOSE, URINE (UA) NEGATIVE (NEGATIVE); KETONES,URINE (UA) NEGATIVE (NEGATIVE); LEUKOCYTE ESTERASE, URINE MODERATE (NEGATIVE); NITRITE,URINE POSITIVE (NEGATIVE); OCCULT BLOOD,URINE SMALL (NEGATIVE); PROTEIN,URINE NEGATIVE (NEGATIVE); UROBILINOGEN,URINE 0.2 (NORMAL) E.U./dL (NORMAL)
[2024-03-24 14:07] LABS: CLARITY,URINE CLOUDY (CLEAR)
[2024-03-24 14:08] LABS: BACTERIA,URINE Rare /HPF (None Seen); SQUAMOUS EPITHELIAL CELL,UR NONE SEEN (<= Few); WBC,URINE >25 /HPF (0-5)
--- NOTE | 2024-03-24 14:14 | CT Report ---
PROCEDURE: Abdomen/Pelvis W INDICATIONS: mid epigastric pain, tachy CONTRAST: omni, 100 TECHNIQUE: After the administration of intravenous contrast, a CT scan of the abdomen and pelvis was performed. Images were recorded and evaluated at appropriate window settings. Reformats: coronal and sagittal. F or radiation dose reduction, the following was used: automated exposure control, adjustment of mA and /or kV according to patient size. COMPARISON: None. FINDINGS: Image quality: Diagnostic. Lower chest: Unremarkable. Liver: Ill-defined hypodensity within the right lobe. Gallbladder: No radiopaque stones or wall thickening. Biliary tree: No intrahepatic or extrahepatic dilation, accounting for age. Spleen: Calcific densities are of the spleen consistent with chronic granulomatous disease Pancreas: No pancreatic ductal dilation. Adrenals: No adrenal nodule. Kidneys and ureters: No hydronephrosis. No renal cystic lesion which requires follow up. No solid mas s. Stomach, bowel and peritoneum: No gastric or small bowel dilation. No abnormal wall thickening. No pa thologic free fluid. Diverticulosis without evidence of diverticulitis. Lymph nodes: Extensive lymphadenopathy throughout the inguinal, pelvic, periaortic, mesenteric, perir enal, a hanh hepatis lymph node stations Vessels: No infrarenal aortic aneurysm. Patent portal vein. PELVIS Reproductive organs: Unremarkable. Bladder: The bladder is under distended but has diffuse wall thickening. Pelvic lymph nodes: Diffuse pelvic sidewall lymphadenopathy. Bones: No aggressive osseous abnormality. Other: No significant ventral or inguinal hernia. IMPRESSION: 1.Extensive very large lymphadenopathy. Correlate with laboratory values for systemic etiologies. 2.Ill-defined hypodensity within the liver. This may be related to the abdominal lymphadenopathy vers us primary hepatic lesion. Consider MRI for further delineation if clinically warranted. 3.Thickening of bladder wall may be from underdistention, correlate with UA for evidence of bladder o bstruction. Reviewed by: Bharat Chavez MD on 03/24/2024 1:13 PM STEVEN Approved by: Bharat Chavez MD on 03/24/2024 1:13 PM STEVEN Station ID: [id number]
[2024-03-24] MEDS: ENOXAPARIN 60 MG/0.6 ML SYRINGE SUBQ STA (14:44)
[2024-03-24] MEDS: NITROFURANTOIN MACRO 100 MG CAPSULE PO STA (15:02)
[2024-03-24 15:12] VITALS: BP 144/94; O2SAT 100
[2024-03-24] MEDS: iohexoL-300 100 ML VIAL IVP ONE (17:37)
--- NOTE | 2024-03-27 11:38 | ED Physician Documentation ---
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 There was no documentation of any urinary symptoms. She grew 2 bacteria which is suggestive of colonization. The E. coli was sensitive to Macrobid. The Pseudomonas would not be expected to be, that said with the lower colony count and lack of symptomatology probably does not need a change in therapy.
== END 2024-03-24 15:15 | disposition home or self-care (01) ==
LOC: ED 10:12
DX: I82.492 Acute embolism and thrombosis of other specified deep vein of left lower extremity (principal); N39.0 Urinary tract infection, site not specified; B96.20 Unspecified Escherichia coli [E. coli] as the cause of diseases classified elsewhere; B96.5 Pseudomonas (aeruginosa) (mallei) (pseudomallei) as the cause of diseases classified elsewhere; R00.0 Tachycardia, unspecified; R91.1 Solitary pulmonary nodule; C91.10 Chronic lymphocytic leukemia of B-cell type not having achieved remission; Z79.01 Long term (current) use of anticoagulants; Z87.891 Personal history of nicotine dependence
CPT/HCPCS: 36415; 71275; 74177; 80053; 81001; 83690; 83735; 85025; 87077; 87086; 87181; 93005; 93971; 99283; 99284; A9270; J1650; Q9967; 81003